=== PATIENT | male | born 1960 | race African-American/Black ===

== ENCOUNTER 2022-10-02 10:39 | Emergency (ER) | payer BC, MEDICAID ==
[~2022-10-02] VITALS: Ht 172.7 cm; Wt 100.0 kg
[~2022-10-02 10:39] MED LIST: NO HOME MEDS
[2022-10-02 11:04] VITALS: BP 189/119
[2022-10-02] MEDS ORDERED: tranexamic acid 100mg/ml inj. TP ONE (11:15)
[2022-10-02] MEDS ORDERED: LIDOCAINE 2%/EPI 1:100,000 inj. Multi-dose 20 ML VIAL IJ ONE ×2 (11:15→12:45)
[2022-10-02] MEDS ORDERED: cloNIDine 0.1 mg tablet PO ONE (11:15)
[2022-10-02] MEDS ORDERED: oxymetazoline 15 ML nasal spray NS ONE (11:15)
[2022-10-02] MEDS ORDERED: LIDOcaine 1% W/epiNEPHrine 1:100,000 20ml vial IJ ONE (12:50)
== END 2022-10-02 12:58 | disposition home or self-care (01) ==
LOC: ER 10:40
DX: I10 Essential (primary) hypertension (principal); R04.0 Epistaxis
CPT/HCPCS: 99283